=== PATIENT | male | born 1940 | race Caucasian/White ===

== ENCOUNTER 2016-11-19 10:40 | Day surgery (SDC) | payer MEDICARE, OTHER ==
[~2016-11-19] VITALS: Ht 167.6 cm; Wt 80.7 kg
--- NOTE | ~2016-11-19 | EGD ---
EGD REPORT [facility] [address] [id number] NAME: SARA GARCIA : [birth year] STATUS : [place] [facility] PAT#: [id number] AGE: 76 ADM/REG DATE : 11/19/16 MR#: [id number] REPORT SERV DATE: 11/19/16 DICTATED BY: NERY SHETTY DATE: 11/19/16 REPORT STATUS : Draft [facility] DATE: 11/19/16 [facility] Patient Name: Sara Garcia Date of : 1940 Attending MD: NERY SHETTY MD Procedure Date No Time: 11/19/2016 Procedure: Colonoscopy Indications: Hematochezia, Last colonoscopy: 2013 Referring MD: ALFRED BEAULIEU MD Medicines: See the Anesthesia note for documentation of the administered medications Complications: No immediate complications. Procedure: Pre-Anesthesia Assessment: - ASA Grade Assessment: III - A patient with severe systemic disease. After I obtained informed consent, the scope was passed under direct vision. Throughout the procedure, the patient's blood pressure, pulse, and oxygen saturations were monitored continuously. The PCF [id number] was introduced through the anus and advanced to the cecum, identified by appendiceal orifice and ileocecal valve. The colonoscopy was performed without difficulty. The patient tolerated the procedure well. The quality of the bowel preparation was adequate. Min fecal debris. Findings: The perianal and digital rectal examinations were normal. Diverticula were found in the sigmoid colon, in the descending colon and in the ascending colon. Internal hemorrhoids were found during retroflexion and were large. A sessile polyp was found in the ascending colon. The polyp was small in size. The polyp was removed with a cold biopsy forceps. Resection and retrieval were complete. A sessile polyp was found in the cecum. The polyp was 10 mm in size. The polyp was removed with a hot snare. Resection and retrieval were complete. To prevent bleeding post-intervention, one hemostatic clip was successfully placed. A single angioectasia was found in the sigmoid colon. Impression: - Diverticulosis in the sigmoid colon, in the descending colon and in the ascending colon. - Internal hemorrhoids. - One small polyp in the ascending colon. Resected and retrieved. - One 10 mm polyp in the cecum. Resected and retrieved. EGD REPORT [address] [address] NAME: SARA GARCIA : [birth year] STATUS : [place] [facility] PAT#: [id number] AGE: 76 ADM/REG DATE : 11/19/16 MR#: [id number] REPORT SERV DATE: 11/19/16 DICTATED BY: ENRY SHETTY DATE: 11/19/16 REPORT STATUS : Draft TRANSCRIBED BY: [email or web address] DATE: 11/19/16 Clip was placed. - A single colonic angioectasia. Recommendation: - Patient has a contact number available for emergencies. The signs and symptoms of potential delayed complications were discussed with the patient. Return to normal activities tomorrow. Written discharge instructions were provided to the patient. - Regular diet. - Continue present medications. - Repeat colonoscopy in 3 years for surveillance. - Restart coumadin today and get INR in one week by your physician - FOR YOUR BIOPSY RESULTS: Please go to [email or web address] and register to receive your results via the portal. Your biopsy results will be posted there in about 7 to 10 days. IF you do not see result in 10 days, call office. - Call Dr Shetty RN for colorectal surg evaluation of fecal incontinence - Suggest Benefiber three times per day if not taking fiber Procedure Code(s): --- Professional --- 90869, Colonoscopy, flexible, proximal to splenic flexure; with removal of tumor(s), polyp(s), or other lesion(s) by snare technique 14851, 59, Colonoscopy, flexible, proximal to splenic flexure; with biopsy, single or multiple Diagnosis Code(s): --- Professional --- K64.8, Other hemorrhoids K57.30, Diverticulosis of large intestine without perforation or abscess without bleeding D12.0, Benign neoplasm of cecum D12.2, Benign neoplasm of ascending colon K55.20, Angiodysplasia of colon without hemorrhage K92.1, Melena CPT copyright 2013 [employer]. All rights reserved. The codes documented in this report are preliminary and upon shaker repairer review may be revised to meet current compliance requirements. Nery Shetty MD EGD REPORT [facility] [address] [id number] NAME: SARA GARCIA : [birth year] STATUS : [place] [facility] PAT#: [id number] AGE: 76 ADM/REG DATE : 11/19/16 MR#: [id number] REPORT SERV DATE: 11/19/16 DICTATED BY: NERY SHETTY DATE: 11/19/16 REPORT STATUS : Draft TRANSCRIBED BY: [employer] DATE: 11/19/16 NERY SHETTY MD 11/19/2016 11:57 AM This report has been signed electronically. Number of Addenda: 0 Note Initiated On: 11/19/2016 11:27 AM Scope Withdrawal Time 0 hours 15 minutes 59 seconds [address] [id number]
[~2016-11-19 10:40] MED LIST: ASA5GR PO; CINNAMON PO; CO Q-10100 MG PO; COZ50 PO; COZAAR100 MG PO; CYANO1000T PO; FISH-EPA1000 MG PO; FLOMAX4 PO; GARLIC PO; HYDROCHLOROT12.5 MG PO; HYZAAR 100/25 T1 TAB PO; JANTOVEN6 MG PO; LOP25 PO; MAGOX4 PO; MULTIPLE VIT PO; OMEGA PO; OS500+D PO; PRILO PO; VITAMIN D PO; VITAMIN D31000 UNIT PO; VYTORIN 10/10 T1 TAB PO; VYTORIN 10/20 T1 TAB PO; ZOCOR20 PO; ZOL50 PO; [UNRECOGNIZED DRUG - OTHER] PO
== END 2016-11-19 23:59 | disposition home or self-care (01) ==
LOC: DMU 10:40
PROVIDERS: Internal Medicine Gastroenterology
PROC: 0DBK8ZX Excision of Ascending Colon, Via Natural or Artificial Opening Endoscopic, Diagnostic (ICD-10-PCS; principal; 2016-11-19 12:00)
PROC: 0DBH8ZX Excision of Cecum, Via Natural or Artificial Opening Endoscopic, Diagnostic (ICD-10-PCS; 2016-11-19 12:00)
DX: D12.2 Benign neoplasm of ascending colon (principal); D12.0 Benign neoplasm of cecum; K57.30 Diverticulosis of large intestine without perforation or abscess without bleeding; K64.8 Other hemorrhoids; K55.20 Angiodysplasia of colon without hemorrhage; I10 Essential (primary) hypertension; I48.91 Unspecified atrial fibrillation; E11.9 Type 2 diabetes mellitus without complications; K21.9 Gastro-esophageal reflux disease without esophagitis; F41.9 Anxiety disorder, unspecified; F32.9 Major depressive disorder, single episode, unspecified; Z95.0 Presence of cardiac pacemaker; Z79.01 Long term (current) use of anticoagulants; Z98.1 Arthrodesis status; Z90.89 Acquired absence of other organs; Z86.010 Personal history of colon polyps; Z98.890 Other specified postprocedural states
CPT/HCPCS: 88305